=== PATIENT | male | born 1955 | race African-American/Black ===

== ENCOUNTER 2019-01-11 17:03 | Inpatient (IN) ==
[2019-01-11] MEDS ORDERED: SODIUM CHLORIDE 0.9% 2,000 ML IV STA (17:27)
[2019-01-11] MEDS ORDERED: ONDANSETRON 4 MG/2 ML VIAL IV STA (17:27)
[2019-01-11] MEDS ORDERED: INSULIN REGULAR 100 UNIT/ML IV STA ×2 (17:27→17:58)
[2019-01-11 17:39] LABS: Basophils % 0.4 % (0.0-0.8); Hematocrit 49.7 VOL% (42.0-52.0); Immature Granulocytes % 0.5 %; Immature Granulocytes Absolute 0.05 #; Lymphocytes # 1.8 10*3/uL (1.4-4.0); Lymphocytes % 16.7 % (21.2-54.2); Mean Corpuscular HGB Conc 30.2 GM/DL (32-36); Mean Corpuscular Volume 88.1 FL (87-102); Mean Platelet Volume 12.3 FL (9.6-12.0); Monocytes % 6.1 % (1.7-12.7); Neutrophils % 76.3 % (38.7-73.9); Platelet Count 309 T/CUMM (130-400); Red Blood Count 5.64 MC/CUMM (3.8-5.5); Red Cell Distribution Width 13.7 % (9.3-17.3); White Blood Count 10.7 T/CUMM (4-12)
[2019-01-11 17:48] LABS: INR 1.2; PT Patient Result 12.7 SECS
[2019-01-11 17:55] LABS: Alanine Aminotransferase 18 U/L (16-61); Albumin 4.2 G/DL (3.4-5.0); Alkaline Phosphatase 117 U/L (45-117); Aspartate Amino Transferase 6 U/L (0-37); Blood Urea Nitrogen 77 MG/DL (7-18); Calcium 9.7 MG/DL (8.5-10.1); Osmolality,Calculated 371.8 MOS/KG (273-304); Troponin I < 0.015 NG/ML (0.00-0.045)
[2019-01-11 17:58] LABS: Glucose 1233 MG/DL (74-106)
[2019-01-11 18:17] LABS: Apearance,Urine Slightly Hazy (Clear); Bilirubin,Urine Negative (Negative); Blood, Urine Negative (Negative); Glucose,Urine (UA) >=500 mg/dL (Negative); Hyaline Casts,Urine 4 /LPF (0-3); Ketones,Urine 5 mg/dL (Negative); Mucus,Urine Occasional /LPF (Occasional); Nitrite,Urine Negative (Negative); Protein,Urine Negative; RBC,Urine 1 /HPF (0-4); Urine Color Yellow (Yellow); Urine Specific Gravity 1.022 (1.001-1.035); Urine Urobilinogen < 2.0 EU/DL (0.2-1.0); WBC,Urine 2 /HPF (0-6)
[2019-01-11 18:19] LABS: Barbiturates Screen,Urine Negative (Negative); Benzodiazepines Screen,Urine Negative (Negative); Cannabinoid Screen,Urine Negative (Negative); Opiate Screen,Urine Negative (Negative); Phencyclidine Screen,Urine Negative (Negative)
[2019-01-11] MEDS ORDERED: LACTATED RINGERS 2,000 ML IV ONE (18:32)
[2019-01-11 19:05] LABS: ABG Base Excess -5.5 MMOL/L (-2.5-2.5); ABG HCO3 19.7 MMOL/L (20-26); ABG Oxygen Saturation 88.8 % (95-100); ABG PCO2 41.6 MM HG (35-48); ABG PH 7.306 (7.35-7.45); ABG PO2 67.5 MM HG (80-95); ABG TCO2 17.9 MMOL/L (23-27); Allen Test Positive
[2019-01-11] MEDS ORDERED: DEXTROSE 50% 25 GM/50 ML SYRINGE IV PRN (20:13)
[2019-01-11] MEDS ORDERED: GLUCAGON 1 MG VIAL IM PRN (20:13)
[2019-01-11] MEDS ORDERED: DEXTROSE 50% 25 GM/50 ML VIAL IV PRN (20:13)
[2019-01-11] MEDS: INSULIN REGULAR DRIP 100 ML IV SCH (20:45)
[2019-01-11 21:11] LABS: Calcium 9.6 MG/DL (8.5-10.1); Osmolality,Calculated 372.4 MOS/KG (273-304)
[2019-01-11] MEDS: MEROPENEM 1,000 MG in SODIUM CHLORIDE 0.9% 100 ML IV SCH (22:35)
[2019-01-11] MEDS: ENOXAPARIN 30 MG/0.3 ML SYRINGE SUBCUT SCH (22:38)
[2019-01-11 23:27] LABS: Allen Test Positive
[2019-01-11 23:29] LABS: ABG Base Excess 0.3 MMOL/L (-2.5-2.5); ABG Oxygen Saturation 94.5 % (95-100); ABG PCO2 46.1 MM HG (35-48); ABG PH 7.369 (7.35-7.45); ABG PO2 82.2 MM HG (80-95); ABG TCO2 27.4 MMOL/L (23-27)
[2019-01-11] MEDS: SODIUM CHLORIDE 0.9% 1,000 ML IV SCH (23:56)
[2019-01-12 04:18] LABS: Calcium 9.2 MG/DL (8.5-10.1)
[2019-01-12 04:20] LABS: Osmolality,Calculated 363.3 MOS/KG (273-304)
[2019-01-12] MEDS: SODIUM CHLORIDE 0.9% 1,000 ML IV SCH (05:02)
[2019-01-12 06:31] LABS: Troponin I < 0.015 NG/ML (0.00-0.045)
[2019-01-12 06:50] LABS: Risk Ratio 2.88; Thyroid Stimulating Hormone 0.686 uIU/ml (0.358-3.74); VLDL CHOLESTEROL 45.2 MG/DL
[2019-01-12] MEDS ORDERED: NITROGLYCERIN 0.2 MG/HR PATCH TRANSDERM SCH (09:00)
[2019-01-12] MEDS ORDERED: cloNIDine 0.3 MG/24 HR PATCH TRANSDERM SCH (09:00)
[2019-01-12 09:01] LABS: Calcium 8.3 MG/DL (8.5-10.1); Osmolality,Calculated 359.7 MOS/KG (273-304)
[2019-01-12] MEDS: MEROPENEM 1,000 MG in SODIUM CHLORIDE 0.9% 100 ML IV SCH ×2 (09:24→19:59)
[2019-01-12] MEDS: POTASSIUM CHLORIDE INJ 10 MEQ in SODIUM CHLORIDE 0.45% 1,000 ML IV SCH ×3 (09:25→21:33)
[2019-01-12] MEDS ORDERED: SODIUM CHLORIDE 0.45% 1,000 ML IV SCH (11:37)
[2019-01-12] MEDS: INSULIN NPH 100 UNIT/ML SUBCUT SCH (16:52)
[2019-01-12 16:57] LABS: Calcium 8.5 MG/DL (8.5-10.1); Osmolality,Calculated 345.6 MOS/KG (273-304)
[2019-01-12] MEDS ORDERED: INSULIN REGULAR 100 UNIT/ML IV ONE (19:35)
[2019-01-12] MEDS: ENOXAPARIN 30 MG/0.3 ML SYRINGE SUBCUT SCH (21:00)
[2019-01-12 21:15] LABS: Calcium 8.9 MG/DL (8.5-10.1); Osmolality,Calculated 333.9 MOS/KG (273-304)
[2019-01-12] MEDS: INSULIN REGULAR DRIP 100 ML IV SCH (23:30)
[2019-01-13] MEDS: DEXTROSE 50% 25 GM/50 ML SYRINGE IV PRN ×2 (02:15→06:25)
[2019-01-13 02:18] LABS: Calcium 8.4 MG/DL (8.5-10.1); Osmolality,Calculated 323.6 MOS/KG (273-304)
[2019-01-13] MEDS: POTASSIUM CHLORIDE INJ 10 MEQ in SODIUM CHLORIDE 0.45% 1,000 ML IV SCH ×5 (03:04→21:05)
[2019-01-13] MEDS: MEROPENEM 1,000 MG in SODIUM CHLORIDE 0.9% 100 ML IV SCH ×3 (06:30→22:28)
[2019-01-13] MEDS: INSULIN NPH 100 UNIT/ML SUBCUT SCH ×2 (08:38→17:40)
[2019-01-13] MEDS: amLODIPine 10 MG TABLET PO SCH (09:16)
[2019-01-13] MEDS: POTASSIUM CHLORIDE 20 MEQ TABLET PO SCH ×3 (09:16→17:40)
[2019-01-13] MEDS: ATORVASTATIN 40 MG TABLET PO SCH (09:16)
[2019-01-13] MEDS: CARVEDILOL 25 MG TABLET PO SCH ×2 (09:16→21:06)
[2019-01-13] MEDS: ASPIRIN EC 81 MG TABLET PO SCH (09:17)
[2019-01-13 11:06] LABS: Apearance,Urine Slightly Hazy (Clear); Bilirubin,Urine Negative (Negative); Blood, Urine Negative (Negative); Glucose,Urine (UA) >=500 mg/dL (Negative); Ketones,Urine 5 mg/dL (Negative); Nitrite,Urine Negative (Negative); Protein,Urine Negative; RBC,Urine 1 /HPF (0-4); Urine Color Yellow (Yellow); Urine Specific Gravity 1.016 (1.001-1.035); Urine Urobilinogen < 2.0 EU/DL (0.2-1.0); WBC,Urine 17 /HPF (0-6)
[2019-01-13] MEDS: INSULIN REGULAR 100 UNIT/ML SUBCUT SCH ×3 (11:36→21:06)
[2019-01-13 13:08] LABS: Calcium 7.6 MG/DL (8.5-10.1); Osmolality,Calculated 321.4 MOS/KG (273-304)
[2019-01-13] MEDS ORDERED: ENOXAPARIN 30 MG/0.3 ML SYRINGE SUBCUT SCH (21:00)
[2019-01-13] MEDS ORDERED: ENOXAPARIN 40 MG/0.4 ML SYRINGE SUBCUT SCH (21:00)
[2019-01-14] MEDS: POTASSIUM CHLORIDE INJ 10 MEQ in SODIUM CHLORIDE 0.45% 1,000 ML IV SCH ×2 (01:35→09:48)
[2019-01-14] MEDS: MEROPENEM 1,000 MG in SODIUM CHLORIDE 0.9% 100 ML IV SCH ×3 (05:49→21:34)
[2019-01-14 06:34] LABS: Calcium 7.8 MG/DL (8.5-10.1); Osmolality,Calculated 302.6 MOS/KG (273-304)
[2019-01-14] MEDS: INSULIN REGULAR 100 UNIT/ML SUBCUT SCH ×5 (07:21→21:11)
[2019-01-14] MEDS: INSULIN NPH 100 UNIT/ML SUBCUT SCH ×2 (07:31→16:02)
[2019-01-14] MEDS ORDERED: BISACODYL 5 MG TABLET PO ONE (08:29)
[2019-01-14] MEDS ORDERED: MAGNESIUM CITRATE 300 ML BOTTLE PO ONE (08:29)
[2019-01-14] MEDS: DOCUSATE SODIUM 100 MG CAPSULE PO SCH ×2 (09:46→21:01)
[2019-01-14] MEDS: ATORVASTATIN 40 MG TABLET PO SCH (09:46)
[2019-01-14] MEDS: ASPIRIN EC 81 MG TABLET PO SCH (09:46)
[2019-01-14] MEDS: CARVEDILOL 25 MG TABLET PO SCH ×2 (09:46→21:01)
[2019-01-14] MEDS: amLODIPine 10 MG TABLET PO SCH (09:47)
[2019-01-14] MEDS: SODIUM CHLORIDE 23.4% CONC INJ 38.5 MEQ in STERILE WATER INJ 1,000 ML IV SCH (09:48)
[2019-01-14] MEDS ORDERED: ENOXAPARIN 30 MG/0.3 ML SYRINGE SUBCUT SCH (21:00)
[2019-01-15] MEDS: SODIUM CHLORIDE 23.4% CONC INJ 38.5 MEQ in STERILE WATER INJ 1,000 ML IV SCH ×2 (00:56→15:44)
[2019-01-15 05:29] LABS: Calcium 7.7 MG/DL (8.5-10.1); Osmolality,Calculated 301.4 MOS/KG (273-304)
[2019-01-15] MEDS: MEROPENEM 1,000 MG in SODIUM CHLORIDE 0.9% 100 ML IV SCH (06:28)
[2019-01-15] MEDS: DOCUSATE SODIUM 100 MG CAPSULE PO SCH ×2 (08:19→20:21)
[2019-01-15] MEDS: ATORVASTATIN 40 MG TABLET PO SCH (08:20)
[2019-01-15] MEDS: ASPIRIN EC 81 MG TABLET PO SCH (08:20)
[2019-01-15] MEDS: amLODIPine 10 MG TABLET PO SCH (08:20)
[2019-01-15] MEDS: INSULIN REGULAR 100 UNIT/ML SUBCUT SCH ×4 (08:20→20:22)
[2019-01-15] MEDS: INSULIN NPH 100 UNIT/ML SUBCUT SCH ×2 (08:24→17:45)
[2019-01-15] MEDS: CARVEDILOL 25 MG TABLET PO SCH ×2 (09:24→20:21)
[2019-01-15] MEDS ORDERED: ENOXAPARIN 40 MG/0.4 ML SYRINGE SUBCUT SCH (21:00)
[2019-01-16] MEDS: SODIUM CHLORIDE 23.4% CONC INJ 38.5 MEQ in STERILE WATER INJ 1,000 ML IV SCH (05:24)
[2019-01-16 08:09] LABS: Calcium 8.3 MG/DL (8.5-10.1); Osmolality,Calculated 294.6 MOS/KG (273-304)
[2019-01-16] MEDS: INSULIN NPH 100 UNIT/ML SUBCUT SCH (08:17)
[2019-01-16] MEDS: ASPIRIN EC 81 MG TABLET PO SCH (08:18)
[2019-01-16] MEDS: amLODIPine 10 MG TABLET PO SCH (08:18)
[2019-01-16] MEDS: INSULIN REGULAR 100 UNIT/ML SUBCUT SCH ×2 (08:18→11:55)
[2019-01-16] MEDS: ATORVASTATIN 40 MG TABLET PO SCH (08:19)
[2019-01-16] MEDS: DOCUSATE SODIUM 100 MG CAPSULE PO SCH (08:19)
[2019-01-16] MEDS: CARVEDILOL 25 MG TABLET PO SCH (10:18)
[2019-01-16 12:14] VITALS: BP 153/84
== END 2019-01-16 12:25 | disposition home or self-care (01) | DRG 638 ==
LOC: EDBD → EDUNIT# → N.ED 17:03 → N.EDINP 18:34 → SUATTDRO 18:34 → N.CC 20:07 → N.2E 01-13 12:44
PROVIDERS: ADMIT Internal Medicine; ATTEND Family Medicine